=== PATIENT | male | born 1990 | race Caucasian/White ===

== ENCOUNTER 2019-10-14 16:16 | Emergency (ER) | payer OTHER ==
[~2019-10-14] VITALS: Ht 165.1 cm; Wt 72.6 kg
[2019-10-14 16:22] VITALS: BP_SYST 130
--- NOTE | 2019-10-14 16:30 | NUR ---
Patient to ER bed 06 for evaluation. Side rails up.
--- NOTE | 2019-10-14 16:45 | NUR ---
Pt arrives from home w/ c/o cough and sore throat for 2 weeks. Pt has been taking over the counter meds w/out any relief.
--- NOTE | 2019-10-14 16:54 | NUR ---
ER at bedside examining patient.
--- NOTE | 2019-10-14 17:13 | NUR ---
flu swab collected and sent to the lab.
[2019-10-14 17:54] VITALS: BP_SYST 119
--- NOTE | 2019-10-14 17:57 | NUR ---
Patient given written and verbal discharge instructions and verbalizes understanding. ER MD discussed with patient the results and treatment provided. Patient in stable condition. ID arm band removed. Rx of Bromed given. Patient educated on pain management and to follow up with PMD. Pain Scale 3/10. Opportunity for questions provided and answered. Medication side effect fact sheet provided.
== END 2019-10-14 17:57 | disposition home or self-care (01) ==
LOC: SED 16:16
DX: J06.9 Acute upper respiratory infection, unspecified (principal)
CPT/HCPCS: 36415; 86710; 99283